=== PATIENT | female | born 1995 | race Caucasian/White ===

== ENCOUNTER 2024-09-23 20:42 | Emergency (ER) | payer SELFPAY ==
[2024-09-23 21:00] VITALS: BP 135/78
--- NOTE | 2024-09-23 22:42 | ED.SKININJ ---
HPI-Injury
<Abena Katz MD, Resident - Last Filed: 09/23/24 23:01>
General
Chief Complaint: Skin Surface Trauma
Source: patient
Exam Limitations: none
Time Seen by Provider: 09/23/24 21:58
Nursing documentation reviewed up to this point in time: agreed with
Travel History
Have you traveled to any high risk areas for coronavirus over the past 14 days?: No
Have you had any contact with someone who has COVID-19?: No
Do you have any symptoms of coronavirus? Fever > 100 degrees, chills, cough, shortness of breath, sore throat, loss of taste or smell, muscle aches, or headache?: No
Is patient interested in receiving COVID-19 vaccine if eligible?: No
History of Present Illness-Injury
Is this injury a work related problem?: No
Is pt an associate of [facility]?: No
Initial Injury comments:
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 She states that she was very busy and did not see the martini glass and age of the martini glass run right into her hand and dug
down. She denies the glass breaking into pieces.
Past History
<Abena Katz MD, Resident - Last Filed: 09/23/24 23:01>
Past History
ED Past Medical History: None
Social History
Tobacco: Non-smoker
Alcohol: Occasional
Drug: None
Personal:
Living: with family
Employment: Employed
Family History
Family History: Other
Review of Systems
<Abena Katz MD, Resident - Last Filed: 09/23/24 23:01>
Review of Systems
Allergies reviewed?: Yes
All Other Systems: ROS reviewed and negative except as documented in HPI and ROS
Skin: Reports other (Laceration)
Skin Exam
<Abena Katz MD, Resident - Last Filed: 09/23/24 23:01>
Laceration
On the palmar side, thenar eminence of her left hand.:
Length in cm: 1.5
Orientation: diagonal
Type of Laceration: simple
Any active bleeding?: low grade venous oozing
Distal skin color and temperature: normal-warm & good color
Normal distal neurovascular exam: Yes
Range of motion: full
Phy Exam
<Abena Katz MD, Resident - Last Filed: 09/23/24 23:01>
General Physical Exam
General Presentation: well appearing and no apparent distress
General age: appears stated age
Cardiovascular Exam
Cardiovascular Exam: regular rate/rhythm, no edema, no gallop, no murmur and normal peripheral pulses
Heart Sounds: normal
Pulmonary Exam
Pulmonary Exam: lungs clear, no respiratory distress, no rales, no crackles and no rhonchi
Skin Exam
Skin Exam: other (wound of about 1.5 centimeters noted on thenar eminence of her left hand. Clean edges, and open wound.)
Course
<Abena Katz MD, Resident - Last Filed: 09/23/24 23:01>
Vital Signs
Initial and Last Documented VS:
Initial Vital Signs
Temp Pulse Resp BP Pulse Ox
98 F 93 18 135/78 98
09/23/24 21:00 09/23/24 21:00 09/23/24 21:00 09/23/24 21:00 09/23/24 21:00
Last Documented Vital Signs
Temp Pulse Resp BP Pulse Ox
98 F 93 18 135/78 98
09/23/24 21:00 09/23/24 21:00 09/23/24 21:00 09/23/24 21:00 09/23/24 21:00
<Teo Mehta, DO - Last Filed: 09/23/24 23:06>
Vital Signs
Initial and Last Documented VS:
Initial Vital Signs
Temp Pulse Resp BP Pulse Ox
98 F 93 18 135/78 98
09/23/24 21:00 09/23/24 21:00 09/23/24 21:00 09/23/24 21:00 09/23/24 21:00
Last Documented Vital Signs
Temp Pulse Resp BP Pulse Ox
98 F 93 18 135/78 98
09/23/24 21:00 09/23/24 21:00 09/23/24 21:00 09/23/24 21:00 09/23/24 21:00
Procedures
<Abena Katz MD, Resident - Last Filed: 09/23/24 23:01>
Laceration Closure
Left Upper Anterior Lateral Proximal Palmar Hand:
Status of Wound: clean
Size of Wound in cm: 1.5
Description of Wound Edges: sharp and flap-well vascularized
Preparation: cleaned with saline and cleaned with Betadine
Anesthesia: 1% Lidocaine with epi
Revision/Debridement: routine- no revision and irrigate-direct pressure
Wound exploration: explored to base- no FB and no tendon involvement
Type of Closure: single layer closure and interrupted sutures
Skin Closure Material: 4-0 vicryl
Number of sutures: 2
<Abena Katz MD, Resident - Last Filed: 09/23/24 23:01>
MDM/Problems Addressed
Differential Diagnosis Includes:
Laceration wound with no foreign body
MDM/Problems Addressed:
Addressed with sutures and topical Polysporin
<Abena Katz MD, Resident - Last Filed: 09/23/24 23:01>
*Pulse Oximetry
Patient hypoxic: no
*EKG
Interpreted by ED Provider?: NA
*Critical Care Note
Total Time (30-74mins, 75-104mins- exclusive of procedures): Not Applicable
<Abena Katz MD, Resident - Last Filed: 09/23/24 23:01>
Update Note
Update Note:
2 sutures were placed for her laceration wound.
ED Attending Note
<Abena Katz MD, Resident - Last Filed: 09/23/24 23:01>
-
Portions of this chart may have been created with voice recognition software.� Occasional wrong word or��sound alike� substitutions may have occurred due to the inherent limitations of voice recognition software.
<Teo Mehta DO - Last Filed: 09/23/24 23:06>
ED Attending Note
Patient seen and examined by attending physician: Yes
I performed a history and physical exam of patient and discussed management with resident, I reviewed resident's note and agree with documented findings and plan of care.: Yes
ED Attending Note:
sen with resident, agree with a/p , hand lac, FROM, TD up todate
Discharge Plan
Departure
Patient Disposition: Home (Routine Discharge)
Date of Disposition: 09/23/24
Time of Disposition: 22:58
Patient with high blood pressure during this ER visit?: Yes
Condition: Good
Discharge Problem:
Laceration of left hand
Instructions: Wound Care (DC), Laceration Repair With Stitches (DC), BLOOD PRESSURE
Prescriptions:
No Action
Vitamin Tablet
1 tab PO DAILY
acetaminophen 325 MG tablet
650 mg PO Q4HPRN PRN (Reason: mild pain) 0RF
nifedipine 30 MG tablet extended release
30 mg PO DAILY Qty: 30 0RF
ibuprofen 600 MG tablet
600 mg PO Q4HPRN PRN (Reason: moderate pain/cramps) 0RF
Referrals:
Chico Sanders DO [Family Provider] -
Activity Restrictions/Additional Instructions:
Your sutures are non absorbable, they need to be removed in 10 days. Please follow up with your primary care for suture removal.
Interventions
Interventions:
*Risk Screen - Suicide Last Done: 09/23/24 21:33
*General Assessment Last Done: 09/23/24 21:33
*Neglect/Abuse Screening Last Done: 09/23/24 21:33
ED-Skin Assessment Last Done: 09/23/24 21:28
Discharge Date and Time
Print Language: [place]
[2024-09-23 23:10] VITALS: BP 139/83
== END 2024-09-23 23:10 | disposition home or self-care (01) ==
LOC: EMR 20:42
PROVIDERS: EMERGENCY PHYSICIAN Emergency Medicine; FAMILY PHYSICIAN Family Medicine
DX: S61.412A Laceration without foreign body of left hand, initial encounter (principal); W25.XXXA Contact with sharp glass, initial encounter
CPT/HCPCS: 99282; 12002